=== PATIENT | female | born 2000 | race African-American/Black ===

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

== ENCOUNTER 2022-05-04 21:09 | Observation (INO) | payer MEDICAID ==
[~2022-05-04] VITALS: Ht 165.1 cm; Wt 99.8 kg
[2022-05-04] MEDS ORDERED: PREN-96 PO (21:36)
[2022-05-04] MEDS ORDERED: ALBUAER3 IN (22:28)
== END 2022-05-04 22:49 | disposition home or self-care (01) ==
LOC: LDRP 21:09
PROVIDERS: ADMIT Obstetrics & Gynecology; ATTEND Obstetrics & Gynecology
DX: O26.892 Other specified pregnancy related conditions, second trimester (principal); Z20.822 Contact with and (suspected) exposure to COVID-19; R09.81 Nasal congestion; R06.02 Shortness of breath; Z3A.26 26 weeks gestation of pregnancy; Z87.891 Personal history of nicotine dependence
CPT/HCPCS: 36415; 59025; 81002; 87426; 87804; 94760; G0378